=== PATIENT | female | born 1980 | race Caucasian/White ===

== ENCOUNTER 2019-06-19 10:29 | Emergency (ER) | payer OTHER ==
[~2019-06-19] VITALS: Ht 162.6 cm; Wt 126.4 kg
[~2019-06-19 10:29] MED LIST: LEVEMIR SQ; MOTRIN 600600 MG/TAB PO; NOVLOG SC; NOVLOG SQ; PERCOCET 325 MG1 TA2 PO; PRENATAL1 TA1 PO
[2019-06-19 10:34] VITALS: TEMP 98.1
[2019-06-19] MEDS ORDERED: CEPHALEXIN500 M1 PO (14:13)
[2019-06-19 14:38] VITALS: BP 131/74; PULSE 81
== END 2019-06-19 14:38 | disposition home or self-care (01) ==
LOC: COL.ER 10:29
DX: I88.9 Nonspecific lymphadenitis, unspecified (principal)
CPT/HCPCS: J0690; J7030; Q9967

== ENCOUNTER 2020-07-21 20:20 | Emergency (ER) | payer OTHER ==
[~2020-07-21] VITALS: Ht 162.6 cm; Wt 113.5 kg
[~2020-07-21 20:20] MED LIST changes: +CEPHALEXIN500 M1 PO
[2020-07-21 20:35] VITALS: TEMP 97.6
[2020-07-21 22:00] VITALS: BP 132/87; PULSE 75
== END 2020-07-21 22:00 | disposition home or self-care (01) ==
LOC: COL.ER 20:20 → EDSTATUS 20:41 → COL.ER 22:00
DX: S61.451A Open bite of right hand, initial encounter (principal); Z87.891 Personal history of nicotine dependence; Z23 Encounter for immunization; Z88.1 Allergy status to other antibiotic agents; W55.01XA Bitten by cat, initial encounter